=== PATIENT | female | born 1960 | race Caucasian/White ===

== ENCOUNTER 2020-11-25 20:07 | Day surgery (SDCO) | payer OTHER ==
[~2020-11-25 20:07] MED LIST: ASPIRIN EC81 M1 PO; ATORVASTATIN CA80 MG PO; CEFDINIR300 MG PO; COREG 3.125M3.125 MG PO; DULOXETINE HCL30 MG PO; ELIQUIS5 MG PO; FLEXERIL10 MG PO; MUCINEX 600MG600 MG PO; NEURONTIN100 MG PO; NEURONTIN300 MG PO; OMEPRAZOLE 20MG20 MG PO; RANEXA500 MG PO; SYMBICORT 16010.2 GM INH; TRAMADOL HCL50 MG PO; ULTRAM50 MG PO; ZITHROMAX500 MG PO
[2020-11-25 20:25] LABS: BASOPHIL 0.3 % (0-2); EOSINOPHIL 1.4 % (0-5); HCT 37.2 % (37.0-47.0); HGB 12.9 g/dl (12.5-16.0); LYMPHOCYTE 32.1 % (15-48); MCH 33.4 pg (25.0-31.0); MCHC 34.7 g/dL (32.0-36.0); MCV 96.4 fL (78.0-100.0); MPV 9.8 fL (6.0-9.5); NEUTROPHIL 60.7 % (41-80); NRBC 0; PLT 248 K/uL (150-400); RBC 3.86 M/uL (4.20-5.40); RDW 14.7 % (11.5-14.0); WBC 10.4 K/uL (4.0-10.5)
[2020-11-25 20:35] LABS: INR 1.02 (0.9-1.2); PROTHROMBIN TIME 12.7 SECONDS (11.4-13.6); PTT 29.2 SECONDS (22.2-34.7)
[2020-11-25 20:37] LABS: D-DIMER 0.27 ug/mLFEU (0.00-0.41)
[2020-11-25 20:42] LABS: ALBUMIN 3.1 g/dL (3.4-5.0); BILIRUBIN - TOTAL 0.5 mg/dL (0.2-1.0); BUN/CREAT RATIO (CALC) 11.9 RATIO; CREATININE 0.67 mg/dL (0.51-0.95); GLOBULIN (CALCULATION) 3.3 g/dL; POTASSIUM 3.2 mmol/L (3.5-5.1); TOTAL PROTEIN 6.4 g/dL (6.4-8.2)
[2020-11-25 20:51] LABS: LACTIC ACID 0.9 mmol/L (0.4-1.9)
[2020-11-26] MEDS ORDERED: CYMBALTA 30MG C30 MG PO (01:34)
[2020-11-26] MEDS ORDERED: RANEXA500 MG PO (01:36)
[2020-11-26] MEDS ORDERED: TRILOGY INH (01:36)
[2020-11-26] MEDS ORDERED: HABITROL7 MG TD (01:37)
[2020-11-26] MEDS ORDERED: TRELEGY ELLIPT1 EACH INH (01:41)
[2020-11-27 03:44] LABS: BASOPHIL 0.4 % (0-2); EOSINOPHIL 2.5 % (0-5); HCT 32.3 % (37.0-47.0); HGB 10.9 g/dl (12.5-16.0); LYMPHOCYTE 35.9 % (15-48); MCH 32.9 pg (25.0-31.0); MCHC 33.7 g/dL (32.0-36.0); MCV 97.6 fL (78.0-100.0); MONOCYTE 6.3 % (0-12); MPV 9.9 fL (6.0-9.5); NEUTROPHIL 54.5 % (41-80); NRBC 0; PLT 218 K/uL (150-400); RBC 3.31 M/uL (4.20-5.40); RDW 15.2 % (11.5-14.0); WBC 7.1 K/uL (4.0-10.5)
[2020-11-27 04:11] LABS: BUN/CREAT RATIO (CALC) 15.4 RATIO; CREATININE 0.65 mg/dL (0.51-0.95); MAGNESIUM 2.4 mg/dL (1.8-2.4); POTASSIUM 4.2 mmol/L (3.5-5.1)
--- NOTE | 2020-11-27 09:35 | NUR ---
PT. IS OBS. PLEASE CONSIDER INPT OR D/C. THANKS
[2020-11-27] MEDS ORDERED: NITROGLYCERIN0.4 MG SL (11:48)
--- NOTE | 2020-11-27 13:49 | NUR ---
DISCUSSED DISCHARGE INSTRUCTIONS WITH DAUGHTER AND PATIENT. PT IN STABLE CONDITION. ORDER FOR STRESS TEST FAXED TO OUTPATIENT, WILL CALL PATIENT WITH APT. D/C HOME WITH DAUGHTER
== END 2020-11-27 13:26 | disposition home or self-care (01) ==
LOC: FER 20:07 → FMS 11-26 00:42
PROVIDERS: Emergency Medicine Emergency Medical Services; ADMIT Internal Medicine
DX: M94.0 Chondrocostal junction syndrome [Tietze] (principal); I25.10 Atherosclerotic heart disease of native coronary artery without angina pectoris; D64.9 Anemia, unspecified; D68.59 Other primary thrombophilia; F17.210 Nicotine dependence, cigarettes, uncomplicated; I25.2 Old myocardial infarction; E78.5 Hyperlipidemia, unspecified; E87.6 Hypokalemia; E83.42 Hypomagnesemia; M79.7 Fibromyalgia; K21.9 Gastro-esophageal reflux disease without esophagitis; J44.9 Chronic obstructive pulmonary disease, unspecified; Z90.49 Acquired absence of other specified parts of digestive tract; Z20.822 Contact with and (suspected) exposure to COVID-19; Z79.01 Long term (current) use of anticoagulants; Z82.49 Family history of ischemic heart disease and other diseases of the circulatory system; Z84.89 Family history of other specified conditions; Z95.9 Presence of cardiac and vascular implant and graft, unspecified; Z90.710 Acquired absence of both cervix and uterus; Z86.711 Personal history of pulmonary embolism
CPT/HCPCS: 36415; 71045; 80048; 80053; 80061; 83605; 83690; 83735; 84145; 84484; 85025; 85379; 85610; 85730; 93005; 94010; G0378; J1885; J2270; J2405; J3475; J3480; J7030; U0002

== ENCOUNTER 2021-02-20 18:30 | Emergency (ER) | payer OTHER ==
[~2021-02-20 18:30] MED LIST changes: +CYMBALTA 30MG C30 MG PO; +HABITROL7 MG TD; +NITROGLYCERIN0.4 MG SL; +TRELEGY ELLIPT1 EACH INH; +TRILOGY INH
[2021-02-20 19:03] LABS: BASOPHIL 0.5 % (0-2); HCT 37.4 % (37.0-47.0); HGB 13.1 g/dl (12.5-16.0); LYMPHOCYTE 30.6 % (15-48); MCV 97.1 fL (78.0-100.0); MONOCYTE 4.3 % (0-12); MPV 9.5 fL (6.0-9.5); NEUTROPHIL 62.2 % (41-80); NRBC 0; PLT 350 K/uL (150-400); RBC 3.85 M/uL (4.20-5.40); RDW 14.8 % (11.5-14.0); WBC 11.3 K/uL (4.0-10.5)
[2021-02-20 19:22] LABS: ALBUMIN 3.5 g/dL (3.4-5.0); BILIRUBIN - TOTAL 0.4 mg/dL (0.2-1.0); BUN/CREAT RATIO (CALC) 12.5 RATIO; CREATININE 0.72 mg/dL (0.51-0.95); GLOBULIN (CALCULATION) 3.9 g/dL; POTASSIUM 3.9 mmol/L (3.5-5.1); TOTAL PROTEIN 7.4 g/dL (6.4-8.2)
[2021-02-20 19:59] LABS: BILIRUBIN NEGATIVE (NEGATIVE); BLOOD 3+ Ery/uL (NEGATIVE); CLARITY CLEAR (CLEAR); COLOR YELLOW (YELLOW); GLUCOSE (U) NORMAL (NORMAL); LEUKOCYTES 1+ Leu/uL (NEGATIVE); NITRITE NEGATIVE (NEGATIVE); PROTEIN 1+ mg/dL (NEGATIVE); SPECIFIC GRAVITY 1.015 (1.001-1.030)
[2021-02-20 20:06] LABS: BACTERIA 1+; URINARY WBC 20-50
[2021-02-20] MEDS ORDERED: PYRIDIUM200 MG PO (20:26)
[2021-02-20] MEDS ORDERED: CEFDINIR300 MG PO (20:26)
== END 2021-02-20 20:38 | disposition home or self-care (01) ==
LOC: FER 18:30
PROVIDERS: Emergency Medicine
DX: N30.91 Cystitis, unspecified with hematuria (principal); F17.200 Nicotine dependence, unspecified, uncomplicated; Z90.49 Acquired absence of other specified parts of digestive tract
CPT/HCPCS: 36415; 80053; 81001; 85025; 87088; 99284

== ENCOUNTER 2021-11-02 07:59 | Emergency (ER) | payer OTHER ==
[~2021-11-02 07:59] MED LIST changes: +PYRIDIUM200 MG PO
[2021-11-02] MEDS ORDERED: MEDROL 4MG DOSEP4 MG PO (13:15)
[2021-11-02] MEDS ORDERED: NORCO 5-325 TA1 EACH PO (13:15)
== END 2021-11-02 13:21 | disposition home or self-care (01) ==
LOC: FER 07:59
DX: S46.912A Strain of unspecified muscle, fascia and tendon at shoulder and upper arm level, left arm, initial encounter (principal); W19.XXXA Unspecified fall, initial encounter; Y92.89 Other specified places as the place of occurrence of the external cause
CPT/HCPCS: 71045; 73030; 73560

== ENCOUNTER → 2022-04-13 | Day surgery (SDC) | payer OTHER ==
[~2022-04-13] VITALS: Ht 172.7 cm; Wt 61.0 kg
[~2022-04-13] MED LIST changes: +ANUCORT-HC25 MG PR; +FORTEO2.4 ML IJ; +MEDROL 4MG DOSEP4 MG PO; +NORCO 5-325 TA1 EACH PO
[2022-04-13 08:49] LABS: HCT 40.9 % (37.0-47.0); HGB 14.5 g/dl (12.5-16.0); MCH 34.3 pg (25.0-31.0); MCHC 35.5 g/dL (32.0-36.0); MCV 96.7 fL (78.0-100.0); MPV 10.2 fL (6.0-9.5); RBC 4.23 M/uL (4.20-5.40); RDW 13.6 % (11.5-14.0); WBC 8.4 K/uL (4.0-10.5)
[2022-04-13 09:09] LABS: ALBUMIN 3.8 g/dL (3.4-5.0); BILIRUBIN - TOTAL 0.5 mg/dL (0.2-1.0); BUN/CREAT RATIO (CALC) 12.7 RATIO; CREATININE 0.71 mg/dL (0.51-0.95); GLOBULIN (CALCULATION) 3.6 g/dL; POTASSIUM 4.3 mmol/L (3.5-5.1); TOTAL PROTEIN 7.4 g/dL (6.4-8.2)
== END | disposition home or self-care (01) ==
LOC: FAS 08:18
PROVIDERS: Surgery
DX: K64.1 Second degree hemorrhoids (principal); K62.5 Hemorrhage of anus and rectum; K58.9 Irritable bowel syndrome, unspecified; Z86.010 Personal history of colon polyps; I11.0 Hypertensive heart disease with heart failure; I50.9 Heart failure, unspecified; I48.91 Unspecified atrial fibrillation; I25.2 Old myocardial infarction; E78.5 Hyperlipidemia, unspecified; I26.99 Other pulmonary embolism without acute cor pulmonale; K21.9 Gastro-esophageal reflux disease without esophagitis; J44.9 Chronic obstructive pulmonary disease, unspecified; G47.30 Sleep apnea, unspecified; F32.A Depression, unspecified; F17.210 Nicotine dependence, cigarettes, uncomplicated; Z99.89 Dependence on other enabling machines and devices; Z90.49 Acquired absence of other specified parts of digestive tract; Z95.5 Presence of coronary angioplasty implant and graft; Z79.01 Long term (current) use of anticoagulants; Z79.82 Long term (current) use of aspirin; Z79.899 Other long term (current) drug therapy
CPT/HCPCS: 36415; 80053; J2704; J7120

== ENCOUNTER → 2022-05-30 | Day surgery (SDC) | payer OTHER ==
[~2022-05-30] VITALS: Ht 172.7 cm; Wt 61.0 kg
[~2022-05-30] MED LIST changes: +ONDANSETRON ODT8 MG PO
[2022-05-30 11:21] LABS: HCT 39.3 % (37.0-47.0); HGB 13.9 g/dl (12.5-16.0); MCH 34.6 pg (25.0-31.0); MCHC 35.4 g/dL (32.0-36.0); MCV 97.8 fL (78.0-100.0); MPV 9.9 fL (6.0-9.5); RBC 4.02 M/uL (4.20-5.40); RDW 14.4 % (11.5-14.0); WBC 8.2 K/uL (4.0-10.5)
[2022-05-30 12:11] LABS: ALBUMIN 3.7 g/dL (3.4-5.0); BILIRUBIN - TOTAL 0.6 mg/dL (0.2-1.0); BUN/CREAT RATIO (CALC) 9.7 RATIO; CREATININE 0.72 mg/dL (0.51-0.95); GLOBULIN (CALCULATION) 3.4 g/dL; POTASSIUM 3.8 mmol/L (3.5-5.1); TOTAL PROTEIN 7.1 g/dL (6.4-8.2)
== END | disposition home or self-care (01) ==
LOC: FAS 09:17
PROVIDERS: Surgery
DX: K64.1 Second degree hemorrhoids (principal); I48.91 Unspecified atrial fibrillation; I50.9 Heart failure, unspecified; E78.5 Hyperlipidemia, unspecified; I25.2 Old myocardial infarction; J44.9 Chronic obstructive pulmonary disease, unspecified; F17.210 Nicotine dependence, cigarettes, uncomplicated; Z79.01 Long term (current) use of anticoagulants; Z79.82 Long term (current) use of aspirin; Z86.010 Personal history of colon polyps; Z88.8 Allergy status to other drugs, medicaments and biological substances
CPT/HCPCS: 36415; 80053; 93005; J1100; J2704; J7120